=== PATIENT | female | born 1995 | race Caucasian/White ===

== ENCOUNTER 2016-04-17 10:43 | Emergency (ER) | payer OTHER ==
[2016-04-17 12:05] LABS: URINE SOURCE CLEAN CATCH
[2016-04-17 12:08] LABS: URINE APPEARANCE CLEAR; URINE BILIRUBIN NEG (NEG); URINE BLOOD 2+ (NEG); URINE COLOR YELLOW; URINE GLUCOSE NEG (NORM); URINE KETONE TRACE (NEG); URINE LEUKOCYTE ESTERASE TRACE (NEG); URINE NITRATE NEG (NEG); URINE PROTEIN NEG (NEG); URINE SPECIFIC GRAVITY 1.025 (1.003-1.035)
[2016-04-17 12:11] LABS: MICRO INDICATED? YES
[2016-04-17 12:20] LABS: CULTURE INDICATED? NO; URINE BACTERIA NEG (NEG); URINE MUCUS PRESENT; URINE SQUAMOUS EPITHELIAL CELL OCCAS /[HPF]; URINE WBC 0-2 /[HPF] (0-5)
[2016-04-17 12:22] LABS: INFLUENZA A POS (NEG); INFLUENZA B NEG (NEG)
== END 2016-04-17 12:51 | disposition home or self-care (01) ==
LOC: SED 10:43
PROVIDERS: Emergency Medicine
DX: J10.1 Influenza due to other identified influenza virus with other respiratory manifestations (principal)
CPT/HCPCS: 81003; 84703; 87651; 87804; 96374; 96375; 99284; J1885; J2405